=== PATIENT | female | born 2005 | race Caucasian/White ===

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

== ENCOUNTER 2023-03-19 03:05 | Inpatient (IN) | payer BC, OTHER ==
[2023-03-19] MEDS ORDERED: XYLOCAINE 1% HCL 20 ML MDV IJ PRN (08:00)
[2023-03-19] MEDS ORDERED: EXPAREL 133 MG/10 ML VIAL IJ ONE (13:38)
[2023-03-19] MEDS ORDERED: Zofran 4 MG/2 ML VIAL IV PRN (14:00)
[2023-03-19 14:15] LABS: Absolute Neutrophil Ct (ANC) 11.05 x10^3/uL (1.4-6.9); BASOPHIL % 0.2 % (0.0-0.4); Basophil (Absolute #) 0.03 x10^3/uL (0-0.4); Eosinophil % 1.4 % (0.00-5.0); Eosinophil (Absolute #) 0.19 x10^3/uL (0-0.5); Hematocrit 29.5 % (35-47); Hemoglobin 9.7 g/dL (12.0-16.0); IMMATURE GRAN # 0.12 x10^3u/L (0.00-0.03); IMMATURE GRAN % 0.9 % (0.00-0.4); Lymphocyte (Absolute #) 1.73 x10^3/uL (1.0-4.6); Lymphocytes % 12.5 % (24.0-44.0); Mean Cell Volume 88.1 fL (78-100); Mean Corpuscular Hgb Concent. 32.9 g/dL (32-36); Mean Platelet Volume 10.2 fL (7.5-11.0); Monocyte (Absolute #) 0.69 x10^3/uL (0.0-1.3); Platelet Count 165 x10^3/uL (150-450); Red Blood Count 3.35 x10^6/uL (4.1-5.4); Red Cell Distribution Width 13.2 % (11.5-14.0); White Blood Count 13.8 x10^3/uL (4.0-10.5)
[2023-03-19] MEDS: CYTOTEC PO SCH ×5 (14:40→22:59)
[2023-03-19 15:06] LABS: Amphetamine,Urine NEGATIVE (NEGATIVE); Barbiturate,Urine NEGATIVE (NEGATIVE); Benzodiazepine,Urine NEGATIVE (NEGATIVE); Cocaine,Urine NEGATIVE (NEGATIVE); Methadone,Urine NEGATIVE (NEGATIVE); Opiate,Urine NEGATIVE (NEGATIVE); PCP,Urine NEGATIVE (NEGATIVE); THC,Urine POSITIVE (NEGATIVE)
[2023-03-19 15:47] LABS: ABO TYPING A; Antibody Screen NEGATIVE (NEGATIVE); RH TYPING POSITIVE
[2023-03-19] MEDS: TYLENOL EXTRA STRENGTH 500 MG PO PRN (18:51)
[2023-03-19] MEDS: STADOL 2 MG IV PRN (23:39)
[2023-03-20] MEDS: CYTOTEC PO SCH ×2 (01:00→03:00)
[2023-03-20] MEDS: STADOL 2 MG IV PRN (03:41)
[2023-03-20] MEDS ORDERED: BRETHINE 1 MG/ML SQ PRN (04:00)
[2023-03-20] MEDS ORDERED: PITOCIN 30 UNITS/ LR 500 ML 30 UNITS/500 ML PLAST..BAG IV SCH (04:00)
[2023-03-20] MEDS: Lactated Ringers 1,000 ML IV SCH ×3 (05:12→20:40)
[2023-03-20] MEDS ORDERED: FENTANYL 2 MCG-BUPIV 0.125%-NS 250 ML Epidur 250 ML EPIDURAL SCH (07:00)
[2023-03-20] MEDS ORDERED: Lactated Ringers 1,000 ML IV ONE ×2 (14:31→15:14)
[2023-03-20] MEDS ORDERED: SOD CITRATE-CITRIC ACID SOLN PO SCH (14:45)
[2023-03-20] MEDS ORDERED: Pepcid 20 MG VIAL IV SCH (14:45)
[2023-03-20] MEDS ORDERED: Reglan 10 MG/2 ML IV SCH (14:45)
[2023-03-20] MEDS: Zithromax 500 MG/ 250 ML NaCl Premix 500 MG/250 ML IVPB IV SCH (14:59)
[2023-03-20] MEDS ORDERED: CEFAZOLIN 2 GM-D5W BAG** 2 GM/50 ML ML IV SCH (15:00)
[2023-03-20 15:05] LABS: Hematocrit 32.7 % (35-47); Hemoglobin 10.4 g/dL (12.0-16.0); Mean Cell Volume 88.6 fL (78-100); Mean Corpuscular Hemoglobin 28.2 pg (26-32); Mean Corpuscular Hgb Concent. 31.8 g/dL (32-36); Mean Platelet Volume 10.6 fL (7.5-11.0); Platelet Count 160 x10^3/uL (150-450); Red Blood Count 3.69 x10^6/uL (4.1-5.4); Red Cell Distribution Width 13.2 % (11.5-14.0); White Blood Count 15.5 x10^3/uL (4.0-10.5)
[2023-03-20] MEDS ORDERED: Astramorph-Pf 5 MG/10 ML ONE (15:06)
[2023-03-20] MEDS ORDERED: PHENYLEPHRINE HCL ONE (15:06)
[2023-03-20] MEDS ORDERED: Pitocin 10 UNITS/ML ONE (15:06)
[2023-03-20] MEDS ORDERED: SUBLIMAZE 100 MCG/2 ML ONE (15:06)
[2023-03-20] MEDS ORDERED: Ephedrine Sulfate 50 MG/ML ONE (15:06)
[2023-03-20] MEDS ORDERED: XYLOCAINE 2%/Epi 1:200000 20ML VIAL MPF ONE (15:07)
[2023-03-20] MEDS ORDERED: Sensorcaine 0.25% 10 ML ONE (15:14)
[2023-03-20] MEDS ORDERED: OFIRMEV 100 ML IV ONE (15:14)
[2023-03-20 15:20] LABS: INR 0.89 (0.8-3.0); PROTIME 9.8 SECONDS (9.4-12.5); PTT 26.3 SECONDS (25.1-36.5)
[2023-03-20] MEDS ORDERED: Zofran 4 MG/2 ML VIAL ONE (16:08)
[2023-03-20] MEDS ORDERED: AlbuRx 25% 50ML VIAL*** 50 ML IV ONE (16:18)
[2023-03-20 17:10] LABS: Absolute Neutrophil Ct (ANC) 17.82 x10^3/uL (1.4-6.9); BASOPHIL % 0.2 % (0.0-0.4); Basophil (Absolute #) 0.05 x10^3/uL (0-0.4); Eosinophil % 0.4 % (0.00-5.0); Eosinophil (Absolute #) 0.08 x10^3/uL (0-0.5); Hematocrit 25.5 % (35-47); IMMATURE GRAN # 0.16 x10^3u/L (0.00-0.03); IMMATURE GRAN % 0.8 % (0.00-0.4); Lymphocyte (Absolute #) 1.57 x10^3/uL (1.0-4.6); Lymphocytes % 7.6 % (24.0-44.0); Mean Cell Volume 91.1 fL (78-100); Mean Corpuscular Hemoglobin 28.6 pg (26-32); Mean Corpuscular Hgb Concent. 31.4 g/dL (32-36); Monocyte (Absolute #) 1.08 x10^3/uL (0.0-1.3); Monocytes % 5.2 % (0.0-12.0); Neutrophil % 85.8 % (36.0-66.0); Platelet Count 149 x10^3/uL (150-450); Red Cell Distribution Width 13.2 % (11.5-14.0); White Blood Count 20.8 x10^3/uL (4.0-10.5)
[2023-03-20] MEDS: Dextrose 5%-Lr IV Solution 1000 ML 1,000 ML IV SCH (19:11)
[2023-03-20] MEDS: PITOCIN 30 UNITS/ LR 500 ML 30 UNITS/500 ML PLAST..BAG IV SCH ×2 (20:41→20:46)
[2023-03-20] MEDS ORDERED: TUCKS TP PRN (22:37)
[2023-03-20] MEDS ORDERED: LANSINOH 40 GM TOP PRN (22:37)
[2023-03-20] MEDS: CEFAZOLIN 2 GM-D5W BAG** 2 GM/50 ML ML IV SCH (23:55)
[2023-03-21] MEDS: MOTRIN 400 MG PO PRN ×3 (01:42→21:43)
[2023-03-21] MEDS: Mylicon 80MG PO PRN (01:43)
[2023-03-21 05:32] LABS: Absolute Neutrophil Ct (ANC) 13.98 x10^3/uL (1.4-6.9); BASOPHIL % 0.2 % (0.0-0.4); Basophil (Absolute #) 0.03 x10^3/uL (0-0.4); Eosinophil % 0.4 % (0.00-5.0); Eosinophil (Absolute #) 0.06 x10^3/uL (0-0.5); Hematocrit 21.6 % (35-47); Hemoglobin 7.2 g/dL (12.0-16.0); IMMATURE GRAN # 0.11 x10^3u/L (0.00-0.03); IMMATURE GRAN % 0.7 % (0.00-0.4); Lymphocytes % 10.6 % (24.0-44.0); Mean Cell Volume 87.4 fL (78-100); Mean Corpuscular Hemoglobin 29.1 pg (26-32); Mean Corpuscular Hgb Concent. 33.3 g/dL (32-36); Monocyte (Absolute #) 0.93 x10^3/uL (0.0-1.3); Monocytes % 5.5 % (0.0-12.0); Neutrophil % 82.6 % (36.0-66.0); Platelet Count 150 x10^3/uL (150-450); Red Blood Count 2.47 x10^6/uL (4.1-5.4); Red Cell Distribution Width 13.5 % (11.5-14.0); White Blood Count 16.9 x10^3/uL (4.0-10.5)
[2023-03-21] MEDS: Dextrose 5%-Lr IV Solution 1000 ML 1,000 ML IV SCH ×3 (07:39→21:41)
[2023-03-21] MEDS: CEFAZOLIN 2 GM-D5W BAG** 2 GM/50 ML ML IV SCH ×2 (07:43→21:43)
--- NOTE | 2023-03-21 07:57 | PCM.NOTE ---
Date and Time: 03/21/23 0754 Subjective Assessment: pod 1 sp csection pt resting in bed and doing well able to tolerate diet vss afebrile abd; soft incision c/d/intact uterus; firm lochia; mild hgb; 7.2 a/p sp csection pod 1 will give iron supplementation anticipate discharge tomorrow OBJECTIVE DATA Vital Signs: Vital Signs - 24 hr Temp Pulse Resp BP BP Pulse Ox 03/21/23 04:30 89 18 105/59 100 03/21/23 04:00 99 03/21/23 03:00 98 03/21/23 02:00 97 03/21/23 01:00 98 03/21/23 00:00 99 03/20/23 23:00 100 03/20/23 22:00 87 20 116/89 100 03/20/23 21:00 99 03/20/23 20:00 100 03/20/23 19:00 97.5 F 74 18 115/74 98 03/20/23 18:45 97.5 F 102 H 18 107/69 97 03/20/23 18:41 98 03/20/23 18:30 97.5 F 70 18 105/60 97 03/20/23 18:15 97.5 F 76 18 133/61 100 03/20/23 18:00 97.5 F 102 H 18 116/62 99 03/20/23 17:45 97.5 F 77 18 116/62 100 03/20/23 17:41 98 03/20/23 15:15 97.5 F 76 18 116/62 03/20/23 15:00 97.5 F 66 18 111/62 03/20/23 14:46 97.6 F 78 16 110/65 100 03/20/23 14:45 97.5 F 66 18 111/62 03/20/23 14:30 97.5 F 71 18 124/67 03/20/23 14:15 97.5 F 62 18 105/69 03/20/23 14:00 97.5 F 71 18 134/90 124/67 100 03/20/23 13:45 97.5 F 72 18 114/59 03/20/23 13:30 97.6 F 63 16 113/57 100 03/20/23 13:00 97.6 F 65 16 135/67 100 03/20/23 12:45 97.6 F 60 16 97/67 100 03/20/23 12:30 97.6 F 57 L 16 131/50 100 03/20/23 12:15 97.6 F 57 L 16 131/50 100 03/20/23 12:00 97.5 F 63 16 121/84 100 03/20/23 11:45 97.5 F 63 16 121/84 100 03/20/23 11:30 97.5 F 67 16 108/69 100 03/20/23 11:15 97.5 F 69 16 111/78 100 03/20/23 11:00 97.5 F 62 16 121/78 100 03/20/23 10:45 97.5 F 64 16 107/56 100 03/20/23 10:30 97.5 F 72 16 112/64 100 03/20/23 10:15 97.5 F 64 16 110/65 100 03/20/23 10:00 97.5 F 64 16 124/80 110/65 100 03/20/23 09:45 97.5 F 75 16 124/80 100 03/20/23 09:15 97.5 F 73 16 110/75 100 03/20/23 09:00 97.5 F 59 L 16 112/73 100 03/20/23 08:45 97.5 F 86 16 113/70 100 03/20/23 08:30 97.5 F 64 16 125/76 100 03/20/23 08:15 97.5 F 71 16 119/78 100 03/20/23 08:00 97.5 F 70 16 115/73 100 Pain Assessment - Last Documented Pain Intensity [Lower] 5 Pain Intensity 6 Pain Scale Used 0-10 Pain Scale Intake and Output: Intake & Output 03/18/23 03/19/23 03/20/23 03/21/23 11:59 11:59 11:59 11:59 Intake Total 1000 Output Total 800 2209 Balance 200 -2209 Weight 95.254 kg 95.254 kg Lab Results: Lab Results-Last 24 Hours 03/20/23 03/20/23 03/20/23 Range/Units 14:55 14:55 17:06 WBC 15.5 H 20.8 H (4.0-10.5) x10^3/uL RBC 3.69 L 2.80 L (4.1-5.4) x10^6/uL Hgb 10.4 L 8.0 L D (12.0-16.0) g/dL Hct 32.7 L 25.5 L (35-47) % MCV 88.6 91.1 (78-100) fL MCH 28.2 28.6 (26-32) pg MCHC 31.8 L 31.4 L (32-36) g/dL RDW 13.2 13.2 (11.5-14.0) % Plt Count 160 149 L (150-450) x10^3/uL MPV 10.6 11.0 (7.5-11.0) fL Gran % 85.8 H (36.0-66.0) % Immature Gran % (Auto) 0.8 H (0.00-0.4) % Nucleat RBC Rel Count 0.0 (0.00-0.1) % Eos # (Auto) 0.08 (0-0.5) x10^3/uL Immature Gran # (Auto) 0.16 H (0.00-0.03) x10^3u/L Absolute Lymphs (auto) 1.57 (1.0-4.6) x10^3/uL Absolute Monos (auto) 1.08 (0.0-1.3) x10^3/uL Absolute Nucleated RBC 0.00 (0.00-0.01) x10^3u/L Lymphocytes % 7.6 L (24.0-44.0) % Monocytes % 5.2 (0.0-12.0) % Eosinophils % 0.4 (0.00-5.0) % Basophils % 0.2 (0.0-0.4) % Absolute Granulocytes 17.82 H (1.4-6.9) x10^3/uL Basophils # 0.05 (0-0.4) x10^3/uL PT 9.8 (9.4-12.5) SECONDS INR 0.89 (0.8-3.0) APTT 26.3 (25.1-36.5) SECONDS / Range/Units 04:27 WBC 16.9 H (4.0-10.5) x10^3/uL RBC 2.47 L (4.1-5.4) x10^6/uL Hgb 7.2 L (12.0-16.0) g/dL Hct 21.6 L (35-47) % MCV 87.4 (78-100) fL MCH 29.1 (26-32) pg MCHC 33.3 (32-36) g/dL RDW 13.5 (11.5-14.0) % Plt Count 150 (150-450) x10^3/uL MPV 11.0 (7.5-11.0) fL Gran % 82.6 H (36.0-66.0) % Immature Gran % (Auto) 0.7 H (0.00-0.4) % Nucleat RBC Rel Count 0.0 (0.00-0.1) % Eos # (Auto) 0.06 (0-0.5) x10^3/uL Immature Gran # (Auto) 0.11 H (0.00-0.03) x10^3u/L Absolute Lymphs (auto) 1.80 (1.0-4.6) x10^3/uL Absolute Monos (auto) 0.93 (0.0-1.3) x10^3/uL Absolute Nucleated RBC 0.00 (0.00-0.01) x10^3u/L Lymphocytes % 10.6 L (24.0-44.0) % Monocytes % 5.5 (0.0-12.0) % Eosinophils % 0.4 (0.00-5.0) % Basophils % 0.2 (0.0-0.4) % Absolute Granulocytes 13.98 H (1.4-6.9) x10^3/uL Basophils # 0.03 (0-0.4) x10^3/uL PT (9.4-12.5) SECONDS INR (0.8-3.0) APTT (25.1-36.5) SECONDS Multi-Disciplinary Progress Notes: Multi-Disciplinary Progress Notes 03/20/23 16:44 Respiratory Note by Dinorah Razo STANDBY [id number] PER PROTOCOL SX X2 SCANT AMOUNT. NO COMPLICATIONS Initialized on 03/20/23 16:44 - END OF NOTE Assessment/Plan (1) delivery delivered Current Visit: Yes Status: Acute Code(s): O82 - ENCOUNTER FOR DELI VERY WITHOUT INDICATION (2) Arrest of dilation, delivered, current hospitalization Current Visit: Yes Status: Acute Code(s): O62.1 - SECONDARY UTERINE INERTIA (3) Arrest of descent, delivered, current hospitalization Current Visit: Yes Status: Acute Code(s): O62.1 - SECONDARY UTERINE INERTIA (4) Acute postoperative anemia due to expected blood loss Current Visit: Yes Status: Acute Code(s): D62 - ACUTE POSTHEMORRHAGIC ANEMIA
[2023-03-21] MEDS ORDERED: FERREX 150 PO SCH ×2 (10:00)
[2023-03-21] MEDS ORDERED: ENOXAPARIN SODIUM SQ ONE (10:00)
[2023-03-21] MEDS ORDERED: FEOSOL 325 MG ONE (10:47)
[2023-03-21] MEDS: ZOLOFT 50 MG TABLET PO SCH (10:51)
[2023-03-21] MEDS: Docusate Sodium 100 MG PO SCH ×2 (10:51→21:42)
[2023-03-21] MEDS: FEOSOL 325 MG PO SCH ×3 (11:24→21:42)
[2023-03-21 13:09] LABS: HBsAg Screen Negative (Negative)
--- NOTE | 2023-03-21 13:27 | OP ---
SURGERY DATE/TIME: 03/20/2023 1533 PREOPERATIVE DIAGNOSIS: Intrauterine at 39 weeks and 2 days gestation with arrest of descent and dilatation with suspected asynclitic presentation. POSTOPERATIVE DIAGNOSIS: Intrauterine at 39 weeks and 2 days gestation with arrest of descent and dilatation with suspected asynclitic presentation. PROCEDURE: Primary section, low flap transverse uterine incision, Pfannenstiel skin incision. SURGEON: Junito Kraus D.O. COMMUNICATION EQUIPMENT REPAIRER: Traci Pettit, surgical technicians. ANESTHESIA: Epidural. QUANTITATIVE BLOOD LOSS: 1309 cc. COMPLICATIONS: None. INDICATIONS: The risks, benefits, indications and alternatives of the procedure were reviewed with the patient prior to procedure. The patient understood the risk of infection, bleeding, bowel injury, bladder injury, ureteral injury, uterine perforation, pelvic infection and thromboembolic disorder associated with the surgery and desires to have this surgery as a possible means to alleviate her current medical condition. DESCRIPTION OF PROCEDURE AND FINDINGS: At this point the patient is taken to the operating room where her epidural anesthesia was found to be adequate. She was then prepared and draped in normal sterile fashion in the dorsal supine position with leftward tilt. A Pfannenstiel skin incision is made with a scalpel and carried through to the underlying layer of the fascia with a Bovie. The fascia was then incised in the midline and the incision extended laterally with Villalta scissors. The superior aspect of the fascial incision was then grasped Devin clamps elevated and the underlying rectus muscles dissected off bluntly. Attention is then turned to the inferior aspect of this incision which in similar fashion was grasped, tented up with Devin clamps and the rectus muscles dissected off bluntly. The rectus muscles were then at the midline and the peritoneum identified, tented up and entered sharply with Metzenbaum scissors. The peritoneal incision was then extended superiorly and inferiorly with good visualization of the bladder. The bladder blade was then inserted and vesicouterine peritoneum identified, grasped with pickups and entered sharply with Metzenbaum scissors. This incision was then extended laterally and bladder flap created digitally. The bladder blade was then reinserted into the lower uterine segment and incised the transverse fascia with a scalpel. The uterine incision was extended laterally with bandage scissors. The bladder blade was then removed and the 's head was delivered atraumatically. The nose and mouth were suctioned with bulb suction and the cord clamped and cut. The infant was then handed off to the awaiting nurses. The placenta was then removed manually. The uterus exteriorized and cleared of all clots and debris. The uterine incision was repaired with 1-0 chromic in a running locked fashion. A second layer of the same suture was used to obtain excellent hemostasis. The uterus is then returned to the abdomen. The gutters were cleared of clots and the peritoneal muscles were closed in interrupted fashion using 2-0 chromic suture. The fascia was re-approximated with 0 Vicryl in a running fashion. The subcutaneous layer was closed with 3-0 Vicryl suture. The skin was closed with absorbable clay called INSORB. The patient tolerated the procedure well. Sponge, lap, needle and instrument counts were correct x2. The patient was then taken to the recovery room in stable condition. The patient delivered a live baby girl at 1552 hours. 's were 9 at 1 minute and 9 at 5 minutes. The weight of the baby was 7 pounds and 13 ounces.
[2023-03-21 14:37] LABS: Absolute Neutrophil Ct (ANC) 10.51 x10^3/uL (1.4-6.9); BASOPHIL % 0.1 % (0.0-0.4); Basophil (Absolute #) 0.02 x10^3/uL (0-0.4); Eosinophil (Absolute #) 0.14 x10^3/uL (0-0.5); Hematocrit 19.7 % (35-47); IMMATURE GRAN # 0.07 x10^3u/L (0.00-0.03); IMMATURE GRAN % 0.5 % (0.00-0.4); Lymphocyte (Absolute #) 1.92 x10^3/uL (1.0-4.6); Lymphocytes % 14.2 % (24.0-44.0); Mean Cell Volume 87.2 fL (78-100); Mean Corpuscular Hemoglobin 28.8 pg (26-32); Mean Platelet Volume 10.1 fL (7.5-11.0); Monocyte (Absolute #) 0.83 x10^3/uL (0.0-1.3); Monocytes % 6.2 % (0.0-12.0); Platelet Count 138 x10^3/uL (150-450); Red Blood Count 2.26 x10^6/uL (4.1-5.4); Red Cell Distribution Width 13.6 % (11.5-14.0); White Blood Count 13.5 x10^3/uL (4.0-10.5)
[2023-03-21 14:40] LABS: Hemoglobin 6.5 g/dL (12.0-16.0)
[2023-03-21] MEDS ORDERED: Sodium Chloride 0.9% 1000 ML 1,000 ML ONE ×2 (15:09→20:22)
[2023-03-21 15:56] LABS: CROSS MATCH (PRBC) COMPATIBLE (COMPATIBLE)
[2023-03-21] MEDS ORDERED: Sodium Chloride 0.9% 1000 ML 1,000 ML IV SCH (20:30)
[2023-03-21] MEDS ORDERED: CLARITIN 10 MG PO ONE (20:41)
[2023-03-21] MEDS: TYLENOL EXTRA STRENGTH 500 MG PO PRN (20:48)
[2023-03-21] MEDS: Zithromax 500 MG/ 250 ML NaCl Premix 500 MG/250 ML IVPB IV SCH (21:56)
[2023-03-21] MEDS ORDERED: BENADRYL 50 MG/ML IV PRN (23:44)
[2023-03-22 00:48] LABS: Absolute Neutrophil Ct (ANC) 11.23 x10^3/uL (1.4-6.9); BASOPHIL % 0.1 % (0.0-0.4); Basophil (Absolute #) 0.02 x10^3/uL (0-0.4); Eosinophil % 1.4 % (0.00-5.0); Hematocrit 27.5 % (35-47); Hemoglobin 8.9 g/dL (12.0-16.0); IMMATURE GRAN % 0.7 % (0.00-0.4); Lymphocyte (Absolute #) 2.01 x10^3/uL (1.0-4.6); Mean Cell Volume 89.3 fL (78-100); Mean Corpuscular Hemoglobin 28.9 pg (26-32); Mean Corpuscular Hgb Concent. 32.4 g/dL (32-36); Mean Platelet Volume 10.4 fL (7.5-11.0); Monocyte (Absolute #) 0.79 x10^3/uL (0.0-1.3); Monocytes % 5.5 % (0.0-12.0); Neutrophil % 78.3 % (36.0-66.0); Platelet Count 155 x10^3/uL (150-450); Red Blood Count 3.08 x10^6/uL (4.1-5.4); Red Cell Distribution Width 13.3 % (11.5-14.0); White Blood Count 14.4 x10^3/uL (4.0-10.5)
[2023-03-22] MEDS: Mylicon 80MG PO PRN ×3 (01:12→13:34)
[2023-03-22] MEDS: NORCO 5/325 MG PO PRN ×2 (01:53→09:39)
[2023-03-22 05:22] VITALS: O2SAT 98
[2023-03-22] MEDS: MOTRIN 400 MG PO PRN ×2 (05:23→13:33)
--- NOTE | 2023-03-22 07:48 | PCM.NOTE ---
Date and Time: 03/22/23745 Subjective Assessment: pod 2 sp csection pt resting in bed and doing well. able to ambulate and tolerate diet vss afebrile abd; soft incision c/d/intact uterus; firm lochia; mild hgb; 8.7 a/p sp csection pod 2 with postop anemia pt received 2 units of prbc doing well stable for discharge today should fu in office in 2 wks OBJECTIVE DATA Vital Signs: Vital Signs - 24 hr Temp Pulse Resp BP Pulse Ox 03/22/23 05:20 97.6 F 99 H 17 120/64 98 03/22/23 02:00 97 03/22/23 01:00 99 03/22/23 00:00 99 03/21/23 23:00 98 03/21/23 22:00 98 03/21/23 21:00 99 03/21/23 20:52 97.9 F 89 18 117/77 97 03/21/23 20:00 97 03/21/23 19:00 100 03/21/23 18:00 99 03/21/23 17:00 98 03/21/23 16:37 79 18 103/57 98 03/21/23 16:20 99.1 F 77 18 101/53 99 03/21/23 16:00 99 03/21/23 15:00 99 03/21/23 14:00 96 03/21/23 13:00 100 03/21/23 12:00 98.7 F 78 16 95/54 100 03/21/23 11:35 97.7 F 85 16 117/56 97 03/21/23 11:00 100 03/21/23 10:00 95 03/21/23 09:00 99 03/21/23 08:00 98.6 F 76 15 84/56 97 Pain Assessment - Last Documented Pain Intensity [Lower] 9 Pain Intensity 5 Pain Scale Used 0-10 Pain Scale Intake and Output: Intake & Output 03/19/23 03/20/23 03/21/23 03/22/23 11:59 11:59 11:59 11:59 Intake Total 1000 1000 Output Total 800 2209 1650 Balance 200 -2209 -650 Weight 95.254 kg 95.254 kg Lab Results: Lab Results-Last 24 Hours 04/23/23 04/25/23 04/25/23 Range/Units 14:07 14:30 15:24 WBC 13.5 H (4.0-10.5) x10^3/uL RBC 2.26 L (4.1-5.4) x10^6/uL Hgb 6.5 L* (12.0-16.0) g/dL Hct 19.7 L (35-47) % MCV 87.2 (78-100) fL MCH 28.8 (26-32) pg MCHC 33.0 (32-36) g/dL RDW 13.6 (11.5-14.0) % Plt Count 138 L (150-450) x10^3/uL MPV 10.1 (7.5-11.0) fL Gran % 78.0 H (36.0-66.0) % Immature Gran % (Auto) 0.5 H (0.00-0.4) % Nucleat RBC Rel Count 0.0 (0.00-0.1) % Eos # (Auto) 0.14 (0-0.5) x10^3/uL Immature Gran # (Auto) 0.07 H (0.00-0.03) x10^3u/L Absolute Lymphs (auto) 1.92 (1.0-4.6) x10^3/uL Absolute Monos (auto) 0.83 (0.0-1.3) x10^3/uL Absolute Nucleated RBC 0.00 (0.00-0.01) x10^3u/L Lymphocytes % 14.2 L (24.0-44.0) % Monocytes % 6.2 (0.0-12.0) % Eosinophils % 1.0 (0.00-5.0) % Basophils % 0.1 (0.0-0.4) % Absolute Granulocytes 10.51 H (1.4-6.9) x10^3/uL Basophils # 0.02 (0-0.4) x10^3/uL Smear Path Review Hep Bs Antigen Negative (Negative) Crossmatch COMPATIBLE (COMPATIBLE) 03/21/23 03/22/23 Range/Units 15:25 00:45 WBC 14.4 H (4.0-10.5) x10^3/uL RBC 3.08 L (4.1-5.4) x10^6/uL Hgb 8.9 L D (12.0-16.0) g/dL Hct 27.5 L (35-47) % MCV 89.3 (78-100) fL MCH 28.9 (26-32) pg MCHC 32.4 (32-36) g/dL RDW 13.3 (11.5-14.0) % Plt Count 155 (150-450) x10^3/uL MPV 10.4 (7.5-11.0) fL Gran % 78.3 H (36.0-66.0) % Immature Gran % (Auto) 0.7 H (0.00-0.4) % Nucleat RBC Rel Count 0.0 (0.00-0.1) % Eos # (Auto) 0.20 (0-0.5) x10^3/uL Immature Gran # (Auto) 0.10 H (0.00-0.03) x10^3u/L Absolute Lymphs (auto) 2.01 (1.0-4.6) x10^3/uL Absolute Monos (auto) 0.79 (0.0-1.3) x10^3/uL Absolute Nucleated RBC 0.00 (0.00-0.01) x10^3u/L Lymphocytes % 14.0 L (24.0-44.0) % Monocytes % 5.5 (0.0-12.0) % Eosinophils % 1.4 (0.00-5.0) % Basophils % 0.1 (0.0-0.4) % Absolute Granulocytes 11.23 H (1.4-6.9) x10^3/uL Basophils # 0.02 (0-0.4) x10^3/uL Smear Path Review Hep Bs Antigen (Negative) Crossmatch COMPATIBLE (COMPATIBLE) Assessment/Plan (1) delivery delivered Current Visit: Yes Status: Acute Code(s): O82 - ENCOUNTER FOR DELIVERY WITHOUT INDICATION (2) Arrest of dilation, delivered, current hospitalization Current Visit: Yes Status: Acute Code(s): O62.1 - SECONDARY UTERINE INERTIA (3) Arrest of descent, delivered, current hospitalization Current Visit: Yes Status: Acute Code(s): O62.1 - SECONDARY UTERINE INERTIA (4) Acute postoperative anemia due to expected blood loss Current Visit: Yes Status: Acute Code(s): D62 - ACUTE POSTHEMORRHAGIC ANEMIA
--- NOTE | 2023-03-22 07:53 | PCM.DS ---
Discharge Summary Date of Admission: 03/20/23 07:36 Admitting Physician: JC BLACKMAN DO Consults: Consults on Case 03/20/23 14:32 Notify Anesthesia Provider ROUTINE 03/21/23 10:08 Navigation ONCE Primary Care Provider: LANE TAM Allergies Allergies No Known Drug Allergies Allergy (Verified 03/19/23 04:36) Hospital Summary - Hospital Course Hospital Course: pt admitted on apirl for oral cytotec induction at 39 1/7 wks gestation and was started on pitocin on march 20 in the am after arom and epidural at 7 am. pt had iupc and electrode placed at approximately 730 am and was noted being at 4-5 cm dilated. at the time of exam pt was noted having likely asynclitic presentation however labor pursued and had minimal cervical change with adequate uterine contractions until 4 pm and was noted being 6 cm with again likely asynclitic presentation and arrest of descent. at this time after discussion pt underwent primary csection and delivered live baby girl without complication. during postop period pt was noted on march 21 to having a hgb of 6.5 and was transfused 2 units of prbc and at this time is stable with stable hgb at 8.7. pt at this time stable for discharge and was advised to fu in office in 2 wks. pt given percocet for pain management upon discharge. all questions answered to her satisfaction. - Vitals & Intake/Output Vital Signs: Vital Signs Temperature 97.6 F 03/22/23 05:20 Pulse Rate 99 H 03/22/23 05:20 Respiratory Rate 17 03/22/23 05:20 Blood Pressure 120/64 03/22/23 05:20 O2 Sat by Pulse Oximetry 98 03/22/23 05:20 Intake & Output: Intake & Output 03/19/23 03/20/23 03/21/23 03/22/23 11:59 11:59 11:59 11:59 Intake Total 1000 1000 Output Total 800 2209 1650 Balance 200 -2209 -650 Weight 95.254 kg 95.254 kg - Lab Result Diagrams: 03/22/23 00:45 Lab Results-Last 24 Hrs: Lab Results-Last 24 Hours 03/19/23 03/21/23 03/21/23 Range/Units 14:07 14:30 15:24 WBC 13.5 H (4.0-10.5) x10^3/uL RBC 2.26 L (4.1-5.4) x10^6/uL Hgb 6.5 L* (12.0-16.0) g/dL Hct 19.7 L (35-47) % MCV 87.2 (78-100) fL MCH 28.8 (26-32) pg MCHC 33.0 (32-36) g/dL RDW 13.6 (11.5-14.0) % Plt Count 138 L (150-450) x10^3/uL MPV 10.1 (7.5-11.0) fL Gran % 78.0 H (36.0-66.0) % Immature Gran % (Auto) 0.5 H (0.00-0.4) % Nucleat RBC Rel Count 0.0 (0.00-0.1) % Eos # (Auto) 0.14 (0-0.5) x10^3/uL Immature Gran # (Auto) 0.07 H (0.00-0.03) x10^3u/L Absolute Lymphs (auto) 1.92 (1.0-4.6) x10^3/uL Absolute Monos (auto) 0.83 (0.0-1.3) x10^3/uL Absolute Nucleated RBC 0.00 (0.00-0.01) x10^3u/L Lymphocytes % 14.2 L (24.0-44.0) % Monocytes % 6.2 (0.0-12.0) % Eosinophils % 1.0 (0.00-5.0) % Basophils % 0.1 (0.0-0.4) % Absolute Granulocytes 10.51 H (1.4-6.9) x10^3/uL Basophils # 0.02 (0-0.4) x10^3/uL Smear Path Review Hep Bs Antigen Negative (Negative) Crossmatch COMPATIBLE (COMPATIBLE) 03/21/23 03/22/23 Range/Units 15:25 00:45 WBC 14.4 H (4.0-10.5) x10^3/uL RBC 3.08 L (4.1-5.4) x10^6/uL Hgb 8.9 L D (12.0-16.0) g/dL Hct 27.5 L (35-47) % MCV 89.3 (78-100) fL MCH 28.9 (26-32) pg MCHC 32.4 (32-36) g/dL RDW 13.3 (11.5-14.0) % Plt Count 155 (150-450) x10^3/uL MPV 10.4 (7.5-11.0) fL Gran % 78.3 H (36.0-66.0) % Immature Gran % (Auto) 0.7 H (0.00-0.4) % Nucleat RBC Rel Count 0.0 (0.00-0.1) % Eos # (Auto) 0.20 (0-0.5) x10^3/uL Immature Gran # (Auto) 0.10 H (0.00-0.03) x10^3u/L Absolute Lymphs (auto) 2.01 (1.0-4.6) x10^3/uL Absolute Monos (auto) 0.79 (0.0-1.3) x10^3/uL Absolute Nucleated RBC 0.00 (0.00-0.01) x10^3u/L Lymphocytes % 14.0 L (24.0-44.0) % Monocytes % 5.5 (0.0-12.0) % Eosinophils % 1.4 (0.00-5.0) % Basophils % 0.1 (0.0-0.4) % Absolute Granulocytes 11.23 H (1.4-6.9) x10^3/uL Basophils # 0.02 (0-0.4) x10^3/uL Smear Path Review Hep Bs Antigen (Negative) Crossmatch COMPATIBLE (COMPATIBLE) - Procedures and Test Procedures and Tests throughout Hospitalization: Therapy Orders & Screens 03/20/23 16:43 Standby ROUTINE Comment: Final Diagnosis/Problem List - Final Discharge Diagnosis/Problem (1) delivery delivered Current Visit: Yes Status: Acute Code(s): O82 - ENCOUNTER FOR DELIVERY WITHOUT INDICATION (2) Arrest of dilation, delivered, current hospitalization Current Visit: Yes Status: Acute Code(s): O62.1 - SECONDARY UTERINE INERTIA (3) Arrest of descent, delivered, current hospitalization Current Visit: Yes Status: Acute Code(s): O62.1 - SECONDARY UTERINE INERTIA (4) Acute postoperative anemia due to expected blood loss Current Visit: Yes Status: Acute Code(s): D62 - ACUTE POSTHEMORRHAGIC ANEMIA - Discharge Disposition: Home, Self-Care Condition: Stable Prescriptions: New Oxycodone HCl/Acetaminophen [Oxycodone-Acetaminophen 5-325] 1 each PO Q6HPRN PRN #20 tablet MDD 4 PRN Reason: Pain No Action Vit No.179/Iron/Folic [ Tablet] 2 tab PO DAILY Sertraline HCl 50 mg [Zoloft 50 mg Tablet] 50 mg PO DAILY Follow up with: L[facility] NP [Primary Care Provider] - JC BLACKMAN DO [ACTIVE STAFF] - 2 weeks (should fu in 2 wks for postop check)
[2023-03-22] MEDS: FEOSOL 325 MG PO SCH ×2 (08:09→09:40)
[2023-03-22] MEDS: Docusate Sodium 100 MG PO SCH (08:16)
[2023-03-22 09:25] VITALS: BP 118/78; PULSE 78
[2023-03-22] MEDS: ZOLOFT 50 MG TABLET PO SCH (09:52)
[2023-03-22] MEDS ORDERED: Adacel Vial IM ONE (10:00)
== END 2023-03-22 18:25 | disposition home or self-care (01) | DRG 787 ==
LOC: OB 07:36 → OBSVTOIN 03-20 07:36
PROVIDERS: ADMIT Obstetrics & Gynecology; ATTEND Obstetrics & Gynecology
PROC: 10D00Z1 Extraction of Products of Conception, Low, Open Approach (ICD-10-PCS; principal; 2023-03-20)
DX: O62.1 Secondary uterine inertia (principal); D62 Acute posthemorrhagic anemia; O64.8XX0 Obstructed labor due to other malposition and malpresentation, not applicable or unspecified; Z3A.39 39 weeks gestation of pregnancy; Z37.0 Single live birth; Z20.828 Contact with and (suspected) exposure to other viral communicable diseases
CPT/HCPCS: 36415; 36430; 59510; 62322; 64488; 76937; 76942; 80307; 85025; 85027; 85610; 85730; 86850; 86900; 86901; 86922; 87340; 90471; 90715; 94799; G0378; G0379; J0456; J0595; J0690; J1200; J1650; J2274; J2370; J2405; J2590; J3010; L0625; P9016; P9047; A9270-GY